=== PATIENT | female | born 1965 | race Caucasian/White ===

== ENCOUNTER 2016-12-18 12:16 | Emergency (ER) | payer OTHER ==
[~2016-12-18] VITALS: Ht 149.9 cm; Wt 55.8 kg
[~2016-12-18 12:16] MED LIST: DARVOCET-N 1001 EACH PO; FLEXERIL10 MG PO; NAPROSYN 500MG500 MG PO
--- OUTSIDE RECORDS SUMMARY | 2016-12-18 12:20 | External Medical Summary Rpt ---
Author Author , Organization [employer] Address Unknown Phone Unavailable Purpose Continuity of Care Document - through 2016
--- OUTSIDE RECORDS SUMMARY | 2016-12-18 12:20 | External Medical Summary Rpt ---
Author Author MARY ELLEN Burns, MARY ELLEN Burns Organization [employer] Address Unknown Phone Unavailable
--- OUTSIDE RECORDS SUMMARY | 2016-12-18 12:20 | External Medical Summary Rpt ---
Author Author [employer] Organization [employer] Address Unknown Phone Unavailable Purpose Continuity of Care Document - through 2016
--- OUTSIDE RECORDS SUMMARY | 2016-12-18 12:20 | External Medical Summary Rpt ---
Demographics Preferred Language Salvadorean Marital Status Unknown Samaritan Affiliation Unknown Race Unknown Ethnic Group Unknown Author Author , Organization [employer] Address Unknown Phone Unavailable Purpose Continuity of Care Document - through 2016 Immunization No patient found.
--- OUTSIDE RECORDS SUMMARY | 2016-12-18 12:20 | External Medical Summary Rpt ---
Demographics Preferred Language Paragu[place] Marital Status Unknown Scientologist Affiliation Unknown Race Unknown Ethnic Group Unknown Author Author , Organization [employer] Address Unknown Phone Unavailable Purpose Continuity of Care Document - through 2016 Immunization No patient found.
[2016-12-18] MEDS ORDERED: MEDROL 4MG. DOSE4 MG PO (12:43)
[2016-12-18] MEDS ORDERED: ZITHROMAX Z PA250 MG PO (12:43)
[2016-12-18] MEDS ORDERED: FLONASE 50 MCG16 GM (12:43)
--- NOTE | 2016-12-18 12:44 | Urgent Treatment Center Report ---
History of Present Issue Date/Time Seen by Provider 12/18/16 1229 Visit Reason Pt arrived:Walked Presenting Problem:PT STATES LEFT EAR LIKE IT HAS FLUID IN IT. STATES IT HAS BOTHERED HER FOR MONTHS BUT HAS GOTTEN WORSE RECENTLY. STATES POPPING AND CRACKING IN EAR Location if Accident: Onset of symptoms date/time:/ or onset unknown for:MEDICAL HX UNKNOWN Have you (or family members/close friends) recently traveled outside the [place]? N If Yes, where/when: Have you had exposure to infectious disease within the past month? TB? Other? Specify: Patient state that she has not been feeling well for the last couple of days states that she has been having issues with her left ear feeling full and feeling like it has fluid in it for several months states that she has also been having sinus pain and pressure. States that yesterday she had a sinus headache and had to lay down to get relief ALLERGIES Coded Allergies: BANANAS (FOOD) (From BANANAS (FOOD/DRUG)) (12/18/16) banana (From BANANAS (FOOD/DRUG)) (12/18/16) History Medical History General CAD? No Angina: No [place]: No Hypertension? No Hyperlipidemia? No CHF? No DVT? No PE? No COPD? No Asthma? No Anemia? No GERD? No Gastric ulcers? No GI Bleed? No Hernia? No Thyroid Problems? No Hypothyroidism? No CVA? No Seizures? No Diabetes? No Renal Insuffiency? No UTI? No Stones? No GB Disease: No Nephritic Syndrome? No Asplenia? No Hepatitis? No Sickle Cell Disease? No Arthritis? No Migraines? No Cataracts? No Glaucoma? No MRSA? No HIV? No TB? No Anxiety? No Depression? No Cancer? 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 Physical Exam Vital Signs Vital Signs Date Time Temp Pulse Resp B/P Pulse O2 O2 Flow FiO2 Ox Delivery Rate 12/18 1219 97.8 74 18 128/70 100 General Appearance normal appearance, WD/WN, no apparent distress Ear, Nose, Throat sinus pain/drainage, nasal congestion, left ear red Tm buldging, right ear Tm clear, pain in frontal sinus area when palpated feels congested, drainage noted in throat Respiratory Status Yes: trachea midline, chest symmetrical, non tender chest. No: respiratory distress. 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 No Departure Departure Time of Disposition 1241 Disposition DC Home or Self Care(routine) Clinical Impression Primary Impression: Upper respiratory infection Qualifiers: URI type: unspecified URI Qualified Code: J06.9 - Acute upper respiratory infection, unspecified Condition STABLE Referrals Mirza Damico MD (Family): 3 Days-Call Office if no improvement Patient Instructions DI for Ear Pain-Adult, DI for Sinus Headache Additional Instructions Start antibiotic. Flonase 2 spray in each nostril daily to help with nasal congestion, sinus an ear pressure/inflammation Lots of Fluids Sleep elevated Humidifer/vaporizer Take allergy medication as advised REturn if needed Follow up with family doctor Discharge Counseling Counseled pt/family regarding diagnosis, medications/RX, home care, follow up needs Prescriptions Current Visit Scripts Azithromycin (Zithromycin (Z-SULMA) 250MG Tab) 250 MG PO DAILY #6 TAB TAKE TWO (2) TABLETS ON DAY 1, THEN ONE (1) TABLET DAY #2 THRU #5 Methylprednisolone (Medrol Dose Sulma) 4 MG PO UD #1 SULMA TAKE DIRECTED ON PACKAGING Fluticasone Propionate (Flonase 50 Mcg Nasal [place]) 2 SPRAY NA DAILY #1 BOT at 124
[2016-12-18 13:01] VITALS: BP 128/70
== END 2016-12-18 13:01 | disposition home or self-care (01) ==
LOC: UTC 12:16
DX: J06.9 Acute upper respiratory infection, unspecified (principal)